=== PATIENT | male | born 1980 | race Caucasian/White ===

== ENCOUNTER 2020-08-09 11:58 | Emergency (ER) | payer OTHER ==
[~2020-08-09] VITALS: Ht 198.1 cm; Wt 104.5 kg
[2020-08-09] MEDS ORDERED: LIDOCAINE 1%/EPI 1:100,000 20 ML VIAL. SQ ONE (12:30)
--- NOTE | 2020-08-09 12:57 | RAD ---
FOREARM RIGHT History: Reason: bit by a pitbull, puncture wound to mid forearm / Spl. Instructions: / History: Technique: 2 views right forearm Comparison: None. Findings: Normal alignment. No fracture. No radiopaque foreign body. Mid forearm subcutaneous gas. Impression: 1. Mid forearm soft tissue injury. No radiopaque foreign body. Electronically signed by: Van Davis DO (08/09/2020 12:54 PM) [id number]
--- NOTE | 2020-08-09 13:31 | ED.ADGEN ---
Past Medical History Past Medical History: Hypertension, Other Additional Past Medical Histor: WPW Past Surgical History: Cholecystectomy, Other Additional Past Surgical Histo: R shoulder Smoking Status: Former Smoker Additional Information: quit about a year ago Alcohol Use: Rarely General Adult EDM: Chief Complaint: ANIMAL BITE HPI: HPI: Patient is a 40 year old who presents to the emergency department with complaints of dog bites to his medial right knee and to his lateral right forearm. 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 Patient reports that the sap plant maintenance consultant states that the animal is up-to-date on all of its vaccinations. Patient has notified animal control upon arrival to the ER. Patient reports that his last tetanus was less than 5 years ago. Review of Systems: Review of Systems: Constitutional: Denies fever or chills. [] Eyes: Denies change in visual acuity. [] HENT: Denies nasal congestion or sore throat. [] Respiratory: Denies cough or shortness of breath. [] Cardiovascular: Denies chest pain or edema. [] GI: Denies abdominal pain, nausea, vomiting, bloody stools or diarrhea. [] : Denies dysuria. [] Musculoskeletal: Denies back pain or joint pain. [] Integument: Denies rash. [] Neurologic: Denies headache, focal weakness or sensory changes. [] Endocrine: Denies polyuria or polydipsia. [] Lymphatic: Denies swollen glands. [] Psychiatric: Denies depression or anxiety. [] Current Medications: Current Medications Medications (Trade) Dose Ordered Sig/[facility] Start Time Stop Time Status Last Admin Dose Admin Lidocaine/ Epinephrine (LIDOCAINE 1%-EPI 1:100,000 Multi-Dose) 20 ml 1X ONCE 08/09/20 12:30 08/09/20 12:31 DC 08/09/20 13:20 20 ML Neomycin/ Polymyxin/ Bacitracin (Triple Antibiotic Ointment) 2 pkt 1X ONCE 08/09/20 14:15 08/09/20 14:16 DC 08/09/20 14:15 2 PKT Allergies: Allergies: Allergies Coded Allergies Type Severity Reaction Last Updated Verified Sulfa (Sulfonamide Antibiotics) Adverse Reaction Intermediate 08/09/20 Yes Physical Exam: PE: Constitutional: Well developed, well nourished, no acute distress, non-toxic appearance. [] HENT: Normocephalic, atraumatic, bilateral external ears normal, oropharynx moist, no oral exudates, nose normal. [] Eyes: PERRLA, EOMI, conjunctiva normal, no discharge. [] Neck: Normal range of motion, no tenderness, supple, no stridor. [] Cardiovascular:Heart rate regular rhythm, no murmur [] Lungs & Thorax: Bilateral breath sounds clear to auscultation [] Abdomen: Bowel sounds normal, soft, no tenderness, no masses, no pulsatile masses. [] Skin: Warm, dry, no erythema, no rash. [] Back: No tenderness, no CVA tenderness. [] Extremities: No tenderness, no cyanosis, no clubbing, ROM intact, no edema. [] Neurologic: Alert and oriented X 3, normal motor function, normal sensory function, no focal deficits noted. [] Psychologic: Affect normal, judgement normal, mood normal. [] Current Patient Data: Vital Signs: Vital Signs Date Time Temp Pulse Resp B/P (MAP) Pulse Ox O2 Delivery O2 Flow Rate FiO2 08/09/20 14:36 68 18 133/94 (107) 98 Room Air 08/09/20 11:58 99.0 99.0 EKG: EKG: [] Heart Score: Risk Factors: Risk Factors: DM, Current or recent (<one month) smoker, HTN, HLP, family history of CAD, obesity. Risk Scores: Score 0 - 3: 2.5% MACE over next 6 weeks - Discharge Home Score 4 - 6: 20.3% MACE over next 6 weeks - Admit for Clinical Observation Score 7 - 10: 72.7% MACE over next 6 weeks - Early Invasive Strategies Radiology/Procedures: Radiology/Procedures: PROCEDURE: FOREARM RIGHT FOREARM RIGHT History: Reason: bit by a pitbull, puncture wound to mid forearm / Spl. Instructions: / History: Technique: 2 views right forearm Comparison: None. Findings: Normal alignment. No fracture. No radiopaque foreign body. Mid forearm subcutaneous gas. Impression: 1. Mid forearm soft tissue injury. No radiopaque foreign body. [] Course & Med Decision Making: Course & Med Decision Making Pertinent Labs and Imaging studies reviewed. (See chart for details) [] Dragon Disclaimer: Dragon Disclaimer: This electronic medical record was generated, in whole or in part, using a voice recognition dictation system. Departure Departure Impression: Primary Impression: Dog bite of right forearm without complication Additional Impression: Dog bite of right knee Disposition: 01 DC HOME SELF CARE/HOMELESS Condition: STABLE Patient Instructions: Animal Bite, [id number], Laceration Care, Adult, [id number] Additional Instructions: Fill the prescriptions and use them as directed. Keep the area clean and dry. You may take Tylenol or ibuprofen as needed for pain. Keep the dressing that was placed today on for 24 hours then change the dressing twice a day and apply antibiotic ointment to the affected areas. Follow-up with your work comp doctor, or return to the emergency room in 10-14 days to have the sutures removed, sooner if you develop signs of infection including: redness, warmth, drainage, or a fever. If you decide that you would like to be treated for rabies you may go to your local health department or another facility. Scripts Amoxicillin/Potassium Clav (AUGMENTIN 875-125 TABLET) 1 Each Tablet 1 TAB PO BID for 7 Days, #14 TAB 0 Refills Prov: MICHELLE TRACY [employer]EL [employer] B[employer] T[employer]ER 08/09/20 Problem Qualifiers Primary Impression: Dog bite of right forearm without complication Encounter type: initial encounter Qualified Codes: S51.851A - Open bite of right forearm, initial encounter; W54.0XXA - Bitten by dog, initial encounter Additional Impression: Dog bite of right knee Encounter type: initial encounter Qualified Codes: S81.051A - Open bite, right knee, initial encounter; W54.0XXA - Bitten by dog, initial encounter MICHELLE TRACY REEL [employer] BEND[employer] TENDER Aug 09, 2020 13:31
[2020-08-09] MEDS ORDERED: NEOMY/BACITR/POLYMYXIN OINT PACKET. TP ONE (14:15)
[2020-08-09] MEDS ORDERED: AMOX1TAB61 PO (14:22)
[2020-08-09 14:36] VITALS: BP 133/94
== END 2020-08-09 15:00 | disposition home or self-care (01) ==
LOC: ER 11:58
DX: S81.051A Open bite, right knee, initial encounter (principal); I10 Essential (primary) hypertension; Z90.49 Acquired absence of other specified parts of digestive tract; Z87.891 Personal history of nicotine dependence; Z98.890 Other specified postprocedural states; Z88.2 Allergy status to sulfonamides; W54.0XXA Bitten by dog, initial encounter; Y93.89 Activity, other specified; Y92.89 Other specified places as the place of occurrence of the external cause; Y99.8 Other external cause status
CPT/HCPCS: 73090; 96372; 99283; J3490